=== PATIENT | male | born 1940 | race Two or more races ===

== ENCOUNTER 2024-07-31 14:34 | Inpatient (IN) | payer OTHER ==
[~2024-07-31] VITALS: Ht 167.6 cm; Wt 58.8 kg
[2024-07-31] MEDS: NALOXONE HCL 1MG/ML 2ML SYRINGE IV ONE (14:56)
[2024-07-31] MEDS: ACETAMINOPHEN 650 MG RECT SUPP PR ONE (14:57)
[2024-07-31 15:00] VITALS: PULSE 80; RESP 36; O2SAT 98
[2024-07-31] MEDS: MIDAZOLAM HCL 5 MG/ML-1ML VIAL IV ONE (15:39)
[2024-07-31] MEDS: ETOMIDATE (2MG/ML) 20ML VIAL IV ONE (15:39)
[2024-07-31 15:48] LABS: Basophils # (auto) 0 10 ^3/uL (0-0.2); Basophils % (auto) 0.1 % (0.0-2.0); Eosinophils # (auto) 0 10 ^3/uL (0-0.8); Hematocrit 47.1 % (41.0-53.0); Hemoglobin 15.1 g/dL (13.5-17.5); Lymphocytes # (auto) 1.7 10 ^3/uL (0.4-5.4); Lymphocytes % (auto) 9.7 % (10.0-50.0); Mean Corpuscular Hemoglobin 30.9 pg (28.0-32.0); Mean Corpuscular Hgb Conc. 32.1 g/dL (32.0-36.0); Mean Corpuscular Volume 96.2 fL (80.0-100.0); Monocytes # (auto) 1.1 10 ^3/uL (0-1.3); Monocytes % (auto) 6.3 % (0.0-12.0); Neutrophils # (auto) 15.1 10 ^3/uL (1.6-8.6); Neutrophils % (auto) 83.9 % (37.0-80.0); Nucleated Red Blood Cells % 0.2 %; Platelet Count (auto) 196 10^3/uL (140-450); Red Blood Cells 4.89 10^6/uL (4.5-5.90); Red Cell Distribution Width 15.8 % (11.8-14.3)
[2024-07-31] MEDS: MIDAZOLAM DRIP 50 mg/50mL 50 ML IV ONE (15:54)
[2024-07-31 16:07] LABS: Alanine Aminotransferase 79 U/L (7-40); Albumin 3.4 g/dL (3.2-4.8); Alkaline Phosphatase 83 U/L (46-116); Anion Gap 15 (5-15); Aspartate Aminotransferase 123 U/L (13-40); Blood Alcohol < 3.0 mg/dL (<10); Calcium 8.2 mg/dL (8.7-10.4); Carbon Dioxide 20 mmol/L (20-30); Chloride 124 mmol/L (98-107); Glucose 107 mg/dL (74-106); Magnesium 3.1 mg/dL (1.6-2.6); Potassium 4.3 mmol/L (3.5-5.1); Sodium 159 mmol/L (136-145)
[2024-07-31 16:08] LABS: Bilirubin, Total 0.4 mg/dL (0.2-1.0)
[2024-07-31 16:14] LABS: BUN/Creatinine Ratio 30.7 (10.0-20.0)
[2024-07-31 16:16] LABS: Blood Urea Nitrogen 150 mg/dL (9-23); INR 1.08 (0.9-1.15); Partial Thromboplastin Time 26.3 SEC (24.5-34.5); Prothrombin Time 11.4 sec (9.3-11.8)
[2024-07-31] MEDS: MIDAZOLAM DRIP 50 mg/50mL 50 ML IV SCH (16:27)
[2024-07-31] MEDS: IOHEXOL 350 MG/ML 100ML IJ ONE (16:28)
[2024-07-31] MEDS: NOREPINEPHRINE 8 MG/250ML KIT 250 ML IV ONE (16:28)
[2024-07-31] MEDS: NOREPINEPHRINE 8 MG/250ML KIT 250 ML IV SCH (16:39)
[2024-07-31] MEDS: SODIUM BICARB 8.4% 50Meq/50ml SYR Vial IV ONE (16:43)
[2024-07-31] MEDS: SODIUM CHLORIDE 0.9% 1,000 ML IV ONE (16:43)
[2024-07-31 17:00] LABS: Base Excess -6.6 mmol/L (-2.0-3.0)
[2024-07-31] MEDS: ALBUTEROL SULF 2.5 MG/0.5ML(0.5%) NEB SOLN NEB ONE (17:01)
[2024-07-31] MEDS: AZITHROMYCIN 500MG/ 250ML 250 ML IV ONE ×2 (17:05→17:44)
[2024-07-31 18:36] VITALS: BP 96/62; PULSE 92; RESP 29; O2SAT 96
[2024-07-31 18:52] LABS: Urine Bacteria FEW /hpf (None Seen); Urine Blood 3+ /uL (Negative); Urine Budding Yeast MANY /hpf (None Seen); Urine Clarity Ex.Turbid (Clear); Urine Color Light-Orange (Yellow); Urine Mucus FEW (None Seen); Urine Protein, UAD 2+ (Negative); Urine Urobilinogen Normal (Negative); Urine WBC 835 /hpf (0 - 3); Urine WBC Clumps PRESENT /hpf (None Seen); Urine pH 5.5 (5.0-9.0)
[2024-07-31 19:30] LABS: Amphetamine Screen, Urine Neg (NEGATIVE); Barbiturate Scree,Urine Neg (NEGATIVE); Benzodiazephine Screen, Urine Neg (NEGATIVE); Cannabinoid Screen, Urine Neg (NEGATIVE); Cocaine Screen, Urine Neg (NEGATIVE); Opiate Scree,Urine Pos (NEGATIVE); Phencyclidine Screen, Urine Neg (NEGATIVE)
[2024-07-31 20:08] VITALS: BP 92/60; PULSE 85; RESP 26; O2SAT 98
[2024-07-31 20:50] VITALS: RESP 20; O2SAT 97
[2024-07-31] MEDS ORDERED: ONDANSETRON HCL 4 MG/2 ML VIAL IV PRN (21:00)
[2024-07-31] MEDS ORDERED: VANCOMYCIN PER PHARMACY 0 MG IV SCH (21:00)
[2024-07-31] MEDS: ACETAMINOPHEN IV 1000 MG/100ML (10MG/ML) IV ONE (21:44)
[2024-07-31] MEDS: SODIUM CHLORIDE 0.9% 2,000 ML IV ONE (21:45)
[2024-07-31] MEDS: MEROPENEM 500MG IVPB 50 ML IV SCH (22:00)
[2024-07-31] MEDS: HEPARIN SODIUM (PORCINE) 5000 UNITS/ML 1ML VIAL SC SCH (22:07)
[2024-07-31 22:16] VITALS: BP 84/48; PULSE 78; RESP 26; O2SAT 97
[2024-07-31 22:40] LABS: Chloride 122 mmol/L (98-107); Potassium 4.6 mmol/L (3.5-5.1); Sodium 157 mmol/L (136-145)
[2024-07-31 22:41] LABS: Anion Gap 17 (5-15); Calcium 8.3 mg/dL (8.7-10.4); Carbon Dioxide 18 mmol/L (20-30)
[2024-07-31] MEDS ORDERED: NITROGLYCERIN 0.4 MG SL TAB SL PRN (22:45)
[2024-07-31] MEDS ORDERED: MORPHINE SULFATE INJ 2 MG/ml SYRG IV PRN (22:45)
[2024-07-31 22:46] LABS: BUN/Creatinine Ratio 22.9 (10.0-20.0); Glucose 139 mg/dL (74-106)
[2024-07-31 22:48] LABS: Creatine Kinase IFCC 809 U/L (46-171)
[2024-07-31 22:53] LABS: Blood Urea Nitrogen 119 mg/dL (9-23)
[2024-07-31] MEDS: cefTRIAXone 1GM/50ML D5W 50 ML IV ONE (22:58)
[2024-07-31] MEDS: FAMOTIDINE (10MG/ML) 2ML VL IV SCH (22:59)
[2024-07-31] MEDS: MEROPENEM 1GM IVPB 50 ML IV ONE (23:30)
[2024-08-01] VITALS (29 sets, daily range): BP systolic 86–184; BP diastolic 33–68; PULSE 55–72; RESP 0–24; TEMP 97.5–102; O2SAT 90–100
[2024-08-01] MEDS: VANCOMYCIN 1GM/200ML 200 ML IV ONE (00:51)
[2024-08-01] MEDS: LACTATED RINGER'S 1,000 ML IV SCH (01:37)
[2024-08-01 06:47] LABS: Basophils # (auto) 0 10 ^3/uL (0-0.2); Basophils % (auto) 0.1 % (0.0-2.0); Eosinophils # (auto) 0 10 ^3/uL (0-0.8); Hematocrit 40.4 % (41.0-53.0); Hemoglobin 13.1 g/dL (13.5-17.5); Lymphocytes # (auto) 2.4 10 ^3/uL (0.4-5.4); Lymphocytes % (auto) 10.9 % (10.0-50.0); Mean Corpuscular Hemoglobin 31.2 pg (28.0-32.0); Mean Corpuscular Hgb Conc. 32.4 g/dL (32.0-36.0); Mean Corpuscular Volume 96.2 fL (80.0-100.0); Monocytes # (auto) 0.8 10 ^3/uL (0-1.3); Monocytes % (auto) 3.4 % (0.0-12.0); Neutrophils # (auto) 19.2 10 ^3/uL (1.6-8.6); Neutrophils % (auto) 85.6 % (37.0-80.0); Nucleated Red Blood Cells % 0.1 %; Platelet Count (auto) 194 10^3/uL (140-450); Red Cell Distribution Width 15.6 % (11.8-14.3); White Blood Cell 22.4 10^3/uL (4.4-10.8)
[2024-08-01 06:53] LABS: INR 1.11 (0.9-1.15); Partial Thromboplastin Time 36.5 SEC (24.5-34.5); Prothrombin Time 11.7 sec (9.3-11.8)
[2024-08-01 06:59] LABS: Alanine Aminotransferase 68 U/L (7-40); Alkaline Phosphatase 71 U/L (46-116); Anion Gap 15 (5-15); Aspartate Aminotransferase 114 U/L (13-40); BUN/Creatinine Ratio 23.3 (10.0-20.0); Calcium 7.2 mg/dL (8.7-10.4); Carbon Dioxide 18 mmol/L (20-30); Chloride 122 mmol/L (98-107); Glucose 139 mg/dL (74-106); Potassium 4.2 mmol/L (3.5-5.1); Sodium 155 mmol/L (136-145)
[2024-08-01 07:00] LABS: Bilirubin, Total 0.3 mg/dL (0.2-1.0); Total Protein 5.4 g/dL (5.7-8.2)
[2024-08-01 07:06] LABS: Blood Urea Nitrogen 116 mg/dL (9-23)
[2024-08-01] MEDS: cefTRIAXone 1GM/50ML D5W 50 ML IV SCH (08:56)
[2024-08-01 09:20] LABS: Protein, Urine 192.5 mg/dL (0.0-11.9)
[2024-08-01 09:23] LABS: Creatinine, Urine 169.4 mg/dL (30.0-125.0)
[2024-08-01 09:38] LABS: Protein, Urine 192.8 mg/dL (0.0-11.9)
[2024-08-01 09:41] LABS: Creatinine, Urine 169.11 mg/dL (30.0-125.0); Urine Protein/Creatinine Ratio 1.14
[2024-08-01 09:47] LABS: Rapid Influenza A Negative (Negative); Rapid Influenza B Negative (Negative)
[2024-08-01 09:51] LABS: COVID19 ANTIGEN SOFIA FIA POSITIVE (NEGATIVE)
[2024-08-01] MEDS ORDERED: AZITHROMYCIN 500MG/ 250ML 250 ML IV SCH (10:00)
[2024-08-01] MEDS: HEPARIN DRIP/D5W 100UNITS/ML 250 ML IV SCH (10:13)
[2024-08-01] MEDS: IBUPROFEN 100MG/5ML ORAL SUSP 100 MG/5 ML UD GT PRN (13:43)
[2024-08-01] MEDS: ACETAMINOPHEN 650 MG RECT SUPP PR PRN (14:43)
[2024-08-01] MEDS ORDERED: ALBU0.084 NEB (15:27)
[2024-08-01] MEDS ORDERED: PRAV20TA3 PO (15:27)
[2024-08-01] MEDS ORDERED: HALO2CON8 PO (15:27)
[2024-08-01] MEDS ORDERED: TRAZ-227 PO (15:27)
[2024-08-01] MEDS ORDERED: MORP1SOL9 PO (15:27)
[2024-08-01] MEDS ORDERED: TAMS0.4C39 PO (15:27)
[2024-08-01] MEDS ORDERED: ALEN70TA74 PO (15:27)
[2024-08-01] MEDS ORDERED: FINA5TAB4 PO (15:27)
[2024-08-01] MEDS ORDERED: LORA2CON PO (15:27)
[2024-08-01] MEDS ORDERED: AMIO200T33 PO (15:27)
[2024-08-01] MEDS ORDERED: TIOT1AER IN (15:27)
[2024-08-01] MEDS ORDERED: ATEN50TA PO (15:27)
[2024-08-01] MEDS: VANCOMYCIN 500 MG in D5W 5% 100 ML IV ONE (15:42)
[2024-08-01] MEDS ORDERED: LIDOCAINE 1% (LOCAL ANESTH.) PF 5ml SDV ID ONE (19:45)
[2024-08-01] MEDS: LIDOCAINE 1% HCL (LOCAL ANESTH.) INJ 20ML MDV ID ONE (20:45)
[2024-08-01] MEDS: ROCURONIUM 10MG/ML 10ML VIAL IV ONE ×2 (21:48→22:27)
[2024-08-01] MEDS: fentaNYL Drip 2500mCg/250mlNS 250 ML IV SCH (22:00)
[2024-08-01] MEDS: SODIUM CHLOR 0.9% PF (SALINE LOCK) 10ML VIAL/SYR IV SCH (22:00)
[2024-08-01] MEDS ORDERED: REMDESIVIR PER PHARMACY 0 ML IV SCH (22:30)
[2024-08-02] VITALS (105 sets, daily range): BP systolic 78–155; BP diastolic 15–83; PULSE 56–73; RESP 13–24; TEMP 96.6–98.8; O2SAT 94–100
[2024-08-02] MEDS: D5W/SOD CHL 0.45% 1,000 ML IV SCH (00:04)
[2024-08-02] MEDS: PROPOFOL 100 ML IV SCH (00:20)
[2024-08-02 08:44] LABS: Base Excess -12.1 mmol/L (-2.0-3.0)
[2024-08-02 10:09] LABS: Anion Gap 12 (5-15); Carbon Dioxide 20 mmol/L (20-30); Chloride 121 mmol/L (98-107); Potassium 4.4 mmol/L (3.5-5.1); Sodium 153 mmol/L (136-145)
[2024-08-02 10:10] LABS: Calcium 7.1 mg/dL (8.7-10.4)
[2024-08-02 10:14] LABS: Glucose 159 mg/dL (74-106)
[2024-08-02 10:15] LABS: BUN/Creatinine Ratio 25.5 (10.0-20.0)
[2024-08-02 10:21] LABS: Blood Urea Nitrogen 135 mg/dL (9-23)
[2024-08-02] MEDS: ENOXAPARIN SOD 40 MG/0.4 ML SYRINGE SC SCH (11:01)
[2024-08-02] MEDS: DexAMETHasone INJECTION 10 MG in D5W 5% 50 ML IV SCH (11:02)
[2024-08-02 12:53] LABS: Base Excess -10.3 mmol/L (-2.0-3.0)
[2024-08-02 13:46] LABS: Basophils # (auto) 0 10 ^3/uL (0-0.2); Basophils % (auto) 0.1 % (0.0-2.0); Eosinophils # (auto) 0 10 ^3/uL (0-0.8); Hematocrit 39.9 % (41.0-53.0); Hemoglobin 13.1 g/dL (13.5-17.5); Lymphocytes # (auto) 0.4 10 ^3/uL (0.4-5.4); Lymphocytes % (auto) 2.3 % (10.0-50.0); Mean Corpuscular Hgb Conc. 32.9 g/dL (32.0-36.0); Mean Corpuscular Volume 94.3 fL (80.0-100.0); Monocytes # (auto) 0.5 10 ^3/uL (0-1.3); Monocytes % (auto) 2.4 % (0.0-12.0); Neutrophils # (auto) 17.6 10 ^3/uL (1.6-8.6); Neutrophils % (auto) 95.2 % (37.0-80.0); Nucleated Red Blood Cells % 0.1 %; Platelet Count (auto) 169 10^3/uL (140-450); Red Blood Cells 4.23 10^6/uL (4.5-5.90); Red Cell Distribution Width 15.5 % (11.8-14.3); White Blood Cell 18.5 10^3/uL (4.4-10.8)
[2024-08-02] MEDS: REMDESIVIR 200 MG in NS 210ml LOADING DOSE ADULT IV ONE (14:16)
[2024-08-02] MEDS: CALCIUM GLUC 1,000mg/50ml-NS 50 ML IV SCH (16:12)
[2024-08-02] MEDS: BUMETANIDE 2.5mg/10ml (0.25 mg/ml) INJ IV ONE (16:12)
[2024-08-03] VITALS (61 sets, daily range): BP systolic 100–145; BP diastolic 36–68; PULSE 55–72; RESP 15–24; TEMP 96.3–98.8; O2SAT 75–100
[2024-08-03 04:26] LABS: Alanine Aminotransferase 57 U/L (7-40); Albumin 2.8 g/dL (3.2-4.8); Alkaline Phosphatase 102 U/L (46-116); Anion Gap 13 (5-15); Aspartate Aminotransferase 90 U/L (13-40); BUN/Creatinine Ratio 21.5 (10.0-20.0); Calcium 7.4 mg/dL (8.7-10.4); Carbon Dioxide 15 mmol/L (20-30); Chloride 120 mmol/L (98-107); Glucose 193 mg/dL (74-106); Potassium 4.4 mmol/L (3.5-5.1)
[2024-08-03 04:27] LABS: Bilirubin, Total 0.2 mg/dL (0.2-1.0); Total Protein 5.1 g/dL (5.7-8.2)
[2024-08-03 04:28] LABS: Sodium 148 mmol/L (136-145)
[2024-08-03 04:29] LABS: Blood Urea Nitrogen 131 mg/dL (9-23)
[2024-08-03 07:40] LABS: Base Excess -11.7 mmol/L (-2.0-3.0)
[2024-08-03] MEDS: ENOXAPARIN SOD 30 MG/0.3 ML SYRINGE SC SCH (09:59)
[2024-08-03] MEDS: LORazepam 2MG/ML-1ML VIAL IV PRN (13:55)
[2024-08-03] MEDS: MORPHINE SULFATE INJ 2 MG/ml SYRG IV PRN (13:55)
[2024-08-03] MEDS ORDERED: REMDESIVIR 100mg 100 MG in SODIUM CHL 0.9% 230 ML IV SCH (15:00)
[2024-08-04] VITALS (7 sets, daily range): BP systolic 119–132; BP diastolic 52–65; PULSE 55–78; RESP 14–22; TEMP 96.3–97.6; O2SAT 85–100
[2024-08-04 06:25] LABS: Alanine Aminotransferase 52 U/L (7-40); Albumin 2.8 g/dL (3.2-4.8); Alkaline Phosphatase 102 U/L (46-116); Anion Gap 17 (5-15); Aspartate Aminotransferase 75 U/L (13-40); Calcium 7.3 mg/dL (8.7-10.4); Carbon Dioxide 14 mmol/L (20-30); Chloride 116 mmol/L (98-107); Glucose 118 mg/dL (74-106); Potassium 5.2 mmol/L (3.5-5.1); Sodium 147 mmol/L (136-145)
[2024-08-04 06:26] LABS: Bilirubin, Total 0.3 mg/dL (0.2-1.0)
[2024-08-04 06:33] LABS: BUN/Creatinine Ratio 22.2 (10.0-20.0)
[2024-08-04 06:35] LABS: Blood Urea Nitrogen 163 mg/dL (9-23)
[2024-08-04] MEDS ORDERED: FAMOTIDINE (10MG/ML) 2ML VL IV SCH (10:00)
[2024-08-05 01:00] VITALS: BP 125/62; PULSE 68; RESP 22; TEMP 98; O2SAT 97
[2024-08-05 05:00] VITALS: BP 131/72; PULSE 83; RESP 22; TEMP 97.3; O2SAT 100
[2024-08-05 06:36] LABS: Alanine Aminotransferase 56 U/L (7-40); Alkaline Phosphatase 118 U/L (46-116); Anion Gap 15 (5-15); Calcium 7.4 mg/dL (8.7-10.4); Carbon Dioxide 15 mmol/L (20-30); Chloride 119 mmol/L (98-107); Glucose 115 mg/dL (74-106); Sodium 149 mmol/L (136-145)
[2024-08-05 06:37] LABS: Albumin 2.9 g/dL (3.2-4.8); Aspartate Aminotransferase 66 U/L (13-40)
[2024-08-05 06:38] LABS: Bilirubin, Total 0.3 mg/dL (0.2-1.0); Total Protein 5.4 g/dL (5.7-8.2)
[2024-08-05 06:45] LABS: BUN/Creatinine Ratio 24.7 (10.0-20.0)
[2024-08-05 06:52] LABS: Blood Urea Nitrogen 208 mg/dL (9-23); Potassium 6.2 mmol/L (3.5-5.1)
[2024-08-05 08:00] VITALS: PULSE 72; PULSE 96; RESP 16; O2SAT 96
[2024-08-05 08:45] VITALS: BP 136/51; PULSE 96; RESP 16; TEMP 98.6; O2SAT 49
[2024-08-05 10:46] VITALS: BP 135/65; PULSE 74; RESP 16; TEMP 98.6; O2SAT 96
== END 2024-08-05 14:45 | disposition hospice, home (50) | DRG 870 ==
LOC: EDUNIT# 14:34 → EDBD 14:34 → ER 14:34 → TELE 22:38 → ICU WEST 08-01 20:48 → TELE-EAST 08-03 18:30
PROVIDERS: ADMIT Nurse Practitioner Family; ATTEND Family Medicine
PROC: 5A1955Z Respiratory Ventilation, Greater than 96 Consecutive Hours (ICD-10-PCS; principal; 2024-07-31)
PROC: 0BH17EZ Insertion of Endotracheal Airway into Trachea, Via Natural or Artificial Opening (ICD-10-PCS; 2024-07-31)
PROC: 0B9F8ZX Drainage of Right Lower Lung Lobe, Via Natural or Artificial Opening Endoscopic, Diagnostic (ICD-10-PCS; 2024-08-01)
PROC: 02HV33Z Insertion of Infusion Device into Superior Vena Cava, Percutaneous Approach (ICD-10-PCS; 2024-08-01)
PROC: B548ZZA Ultrasonography of Superior Vena Cava, Guidance (ICD-10-PCS; 2024-08-01)
PROC: 0B938ZZ Drainage of Right Main Bronchus, Via Natural or Artificial Opening Endoscopic (ICD-10-PCS; 2024-08-02)
PROC: 0BCB8ZZ Extirpation of Matter from Left Lower Lobe Bronchus, Via Natural or Artificial Opening Endoscopic (ICD-10-PCS; 2024-08-02)
DX: A41.9 Sepsis, unspecified organism (principal); I21.4 Non-ST elevation (NSTEMI) myocardial infarction; G93.41 Metabolic encephalopathy; J12.82 Pneumonia due to coronavirus disease 2019; J96.01 Acute respiratory failure with hypoxia; J96.02 Acute respiratory failure with hypercapnia; U07.1 COVID-19; R65.21 Severe sepsis with septic shock; J15.69 Pneumonia due to other Gram-negative bacteria; T83.518A Infection and inflammatory reaction due to other urinary catheter, initial encounter; E87.0 Hyperosmolality and hypernatremia; J90 Pleural effusion, not elsewhere classified; N17.9 Acute kidney failure, unspecified; N39.0 Urinary tract infection, site not specified; R57.9 Shock, unspecified; E87.20 Acidosis, unspecified; J43.9 Emphysema, unspecified; Z66 Do not resuscitate; Y84.8 Other medical procedures as the cause of abnormal reaction of the patient, or of later complication, without mention of misadventure at the time of the procedure; R91.1 Solitary pulmonary nodule; Z51.5 Encounter for palliative care
CPT/HCPCS: 31500; 31645; 36415; 36600; 70450; 71045; 71275; 76775; 80048; 80053; 80202; 80307; 80320; 81001; 82043; 82306; 82550; 82565; 82570; 82607; 82805; 83036; 83605; 83735; 83880; 83935; 83970; 84100; 84156; 84300; 84484; 85025; 85610; 85730; 87040; 87070; 87077; 87081; 87086; 87088; 87186; 87205; 87426; 87804; 93005; 93306; 94002; 94003; 94640; 96361; 96365; 96366; 96375; 99291; 99292; G0378; J0131; J1100; J2185; J2250; J2704; J3490; J7060